=== PATIENT | male | born 1955 | race Caucasian/White ===

== ENCOUNTER 2024-08-25 06:43 | Day surgery (SDC) | payer MEDICARE, SELFPAY ==
--- OUTSIDE RECORDS SUMMARY | 2024-08-05 12:20 | XMS_ITS | Continuity of Care Document ---
Author Organization [facility] Address [address] [place] [address]- Care Team Providers Care M[employer] Liqu[employer] Sales Representative Name Role Phone Jeremy REGISTRATION CLERK, Mina Middleton Primary Care Physician ( [phone] Encounter [facility] Date(s): 06/15/24 - 07/15/24 [facility] [address] [place] [address]- Encounter Type: Triage Allergies, Adverse Reactions, Alerts No Known Allergies Immunizations Given and Recorded Vaccine Date Status Refusal Reason [id number] bivalent booster vax 04/24/22 Recorded influenza virus vaccine, inactivated 04/24/22 Lalo rded influenza virus vaccine, inactivated 04/15/21 Lalo rded SARS-CoV-2 (COVID-19) mRNA-1273 vaccine 04/15/21 R ecorded SARS-CoV-2 (COVID-19) mRNA-1273 vaccine 09/15/20 R ecorded SARS-CoV-2 (COVID-19) mRNA-1273 vaccine 08/16/20 R ecorded Influenza Virus Vaccine (oldterm) 1 03/30/20 Recor ded tetanus/diphtheria/pertussis, acel(Tdap) 06/13/16 Given Tetanus Toxoid 03/18/07 Recorded 1Result Comment: duarte velasquez Medications atorvastatin 80 mg oral tablet 1 tablet = 80 mg, By Mouth, Daily, for 90 days, # 90 tablet, 1 Refills, Hard Stop 11/11/24 1:59:00 PM EDT, 05/15/24 1:59:00 PM EST, Tablet, [facility], Partial fill upon patient request if the prescription is for a schedule II opioid drug., 173, cm, 09/23/23 9:52:00 EDT, Height, 80.4, kg, 11/15/21 17:29:00 EDT, Dry Weight Start Date: 05/15/24 Stop Date: 11/11/24 Status: Ordered Quantity: 90.0 Unit: tablet Repeat number: 2 cholecalciferol 2000 intl units oral tablet TAKE 1 TABLET DAILY, 09/28/13 4:20:00 PM EDT Start Date: 09/28/13 Status: Ordered Repeat number: 1 clopidogrel 75 mg oral tablet 75 mg, 1, tablet, By Mouth, Daily, # 90 tablet, Refills 3, Tot. Refills 3, Maintenance, 04/09/24 2:16:00 PM EDT, Route to Pharmacy Electronically, [facility], to replace Brilinta after current Rx runs out, 173, cm, 02/11/24 9:18:00 EDT, Height Start Date: 04/09/24 Status: Ordered Quantity: 90.0 Unit: tablet Repeat number: 4 cyanocobalamin 1000 mcg oral tablet 1,000 mcg, 1, tablet, By Mouth, Daily, # 90 tablet, Refills 1, Tot. Refills 1, Maintenance, 01/25/2312:33:00 PM EDT, Route to Pharmacy Electronically, [facility], Partial fill uponpatient request if the prescription is for a schedule II opioid drug., 173, cm, 10/11/22 9:41:00 EDT, Height, 80.4, kg, 11/15/21 17:29:00 EDT, Dry Weight Start Date: 01/24/23 Stop Date: 03/25/23 Status: Ordered Quantity: 90.0 Unit: tablet Repeat number: 2 Indication: Deficiency of other specified B group vitamins losartan 25 mg oral tablet 25 mg, 1, tablet, By Mouth, Daily at bedtime, # 90 tablet, Refills 1, Tot. Refills 1, Maintenance, 03/25/24 8:42:00 AM EDT, Route to Pharmacy Electronically, [facility], Partial fill upon patient request if the prescription is for a schedule II opioid drug., 173, cm, 02/11/24 9:18:00 EDT, Height Start Date: 03/25/24 Status: Ordered Quantity: 90.0 Unit: tablet Repeat number: 2 metFORMIN 1000 mg oral tablet 1 tablet, By Mouth, 2 times a day, # 180 tablet, 1 Refills, Maintenance, 02/13/24 10:18:00 AM EDT, [facility], 173, cm, 02/11/24 9:18:00 EDT, Height Start Date: 02/13/24 Status: Ordered Quantity: 180.0 Unit: tablet Repeat number: 2 metoprolol 25 mg oral tablet 12.5 mg, 0.5, tablet, By Mouth, 2 times a day, OV 05-18-24, # 90 tablet, Refills 1, Tot. Refills 1, Maintenance, 04/13/24 2:12:00 PM EDT, Route to Pharmacy Electronically, [facility], Partial fill upon patient request if the prescription is for a schedule II opioid drug., 173, cm,02/11/24 9:18:00 EDT, Height Start Date: 04/13/24 Status: Ordered Quantity: 90.0 Unit: tablet Repeat number: 2 Nitrostat 0.4 mg sublingual tablet 1 tablet = 0.4 mg, Sublingual, Every 5 minutes, PRN for chest pain, # 25 tablet, 3 Refills, Maintenance, 01/28/24 11:28:00 AM EDT, Tablet, [id number], Partial fill upon patient request if the prescription is for a schedule II opioid drug., 173, cm, 01/28/24 10:55:00 EDT, Height Start Date: 01/28/24 Status: Ordered Quantity: 25.0 Unit: tablet Repeat number: 4 OneTouch Verio Glucose Meter See Instructions, # 1 units, Refills 0, Tot. Refills 0, Maintenance, Test blood sugar twice daily E11.9, 07/11/16 8:40:00 AM EST, Compound Start Date: 07/11/16 Status: Ordered Quantity: 1.0 Unit: Units Repeat number: 1 OneTouch Verio Lancets See Instructions, # 100 units, Refills 11, Tot. Refills 11, Maintenance, Test blood sugar twice daily E11.9, 07/11/16 8:40:00 AM EST, Compound Start Date: 07/11/16 Status: Ordered Quantity: 100.0 Unit: Units Repeat number: 12 OneTouch Verio Test Strips See Instructions, # 200 each, Refills 5, Tot. Refills 5, Maintenance, Test blood sugar twice daily E11.9, 03/25/24 11:03:00 AM EDT, Compound, 173, cm, 02/11/24 9:18:00 EDT, Height Start Date: 03/25/24 Status: Ordered Quantity: 200.0 Unit: each Repeat number: 6 Problem List Condition Confirmation Course Effective Dates Status H ealth Status Informant COVID-19 1 Confirmed 11/19/21 Active Diabetes mellitus, controlled Confirmed Active Hyperlipidemia Confirmed Active Hypertension Confirmed Active Ischemic heart disease Confirmed Active Obstructive sleep apnea Confirmed Active Encounter for preventive health examination Confirmed Active 1Problem added by Discern Expert Social History Social History Type Response Smoking Status Former smoker entered on: 06/13/16 Sex Sex Representation Male (finding) Patient Care team information Care Team Personnel Name: Mina Luna NP Position: [facility] PC[facility] Associate Professional Member Role: PCP Address: [address] [place] [address] [address] Telecom: Care Team Related Persons Name: ADAMS ISABEL Insurance Providers Guarantor name: EMELINA ISABEL Health Plan Information #: 1 Payer: MEDICARE PART B OUTPT Member Number: NA Policy Number: NA Group Number: NA Health Plan Information #: 2 Payer: [employer] SUP Member Number: NA Policy Number: NA Group Number: NA
--- OUTSIDE RECORDS SUMMARY | 2024-08-05 12:20 | XMS_ITS | Patient Health Record ---
Author Organization [facility] Address [address] [place] [address] Care Team Providers Care Accounting Machine Operator Name Role Phone RABIA QUIROGA CNP Primary Care Provider U Lobito Stallings Jr Unavailable Lobito العلي Unavailable Unavailable ALLERGIES No Known Allergies REASON FOR REFERRAL No Information MEDICATIONS Medication SIG (Take, Route, Frequency, Duration) Notes Start Date End Date Status Vitamin B 12 500 MCG 1 tablet Orally Onc e a day for 30 day(s) 06/03/2024 Active Clopidogrel Bisulfate 75 MG Oral for 90 Active Metoprolol Tartrate 25 MG Oral for 90 Active Nitroglycerin 0.4 MG DISSOLVE ONE TABLET UNDER TONGUE NEEDED FOR CHEST PAIN - MAY REPEAT EVERY 5 MINUTES UP TO 3 DOSES - CALL 911 IF NOT RELIEVED Sublingual for 10 Active Vitamin D-3 25 MCG (1000 UT) 1 capsule O rally Once a day for 30 day(s) 06/03/2024 Active Losartan Potassium 25 MG Oral for 90 Active metFORMIN HCl 1000 MG Oral for 90 Active Atorvastatin Calcium 80 MG Oral for 90 Active MiraLax (colon prep) 17 GM/SCOOP mixed with Gatorade or Crystal Light Orally begin at 5:00 p.m. the day before the procedure for 1 day 06/03/2024 Active IMMUNIZATIONS Vaccine Route Administration Date Status Comme nts Influenza Unknown 05/20/2024 Administered SOCIAL HISTORY Tobacco Use: Social History Observation Description Date Details (start date - stop date) Former Smoker NA - NA Sex Assigned At : Social History Observation Description Sex Assigned At Unknown Tobacco Use/Smoking Question Answer Notes Patient is a former smoker Alcohol Screen Question Answer Notes Did you have a drink contain ing alcohol in the past year? Yes How often did you have a dri nk containing alcohol in the past year? 2 to 3 times a week (3 points) How many drinks did you have on a typical day when you were drinking in the past year? 3 or 4 drinks (1 point) How often did you have 6 or more drinks on one occasion in the past year? Never (0 point) Points 4 Interpretation Positive PROBLEMS Problem Type ICD Code Onset Dates Problem Status W/U Status Risk SNOMED Code Notes Problem Colon cancer screening (Z12.11) Active confirmed 619724562 Problem Encounter for current custodial use of antiplatelet drug (Z79.02) Active confirmed 154491282630953 Problem jail (current) use of oral hypoglycemic drugs (Z79.84) Active confirmed [id number] VITAL SIGNS Temperature 97.5 degrees Fahrenheit 06/03/2024 Blood pressure diastolic 00 mm Hg 06/03/2024 Height 5 ft 8 in in 06/03/2024 Blood pressure systolic 000 mm Hg 06/03/2024 Weight 178 lb 8 oz lbs 06/03/2024 BMI 27.14 kg/m2 06/03/2024 Encounters Encounter Location Date Provider Diagnosis [facility] [address] [facility] [address] [place] [id number] 06/03/2024 Lobito العلي Jr Colon cancer screening Z12.11 ; Encounter for current custodial use of antiplatelet drug Z79.02 and jail (current) use of oral hypoglycemic drugs Z79.84 ASSESSMENTS Encounter Date Diagnosis Assessment Notes Treatment Notes Treatment Clinical Notes 06/03/2024 Colon cancer screening (ICD-10 - Z12.11) Colonoscopy material was printed,Colonoscop y material was printed 06/03/2024 Encounter for current custodial use of antiplatelet drug (ICD-10 - Z79.02) 06/03/2024 jail (current) use of oral hypoglycemic drugs (ICD-10 - Z79.84) PLAN OF TREATMENT Future Test Test Name Order Date COLONOSCOPY 06/03/2024 Next Appt Details Provider Name:Lobito hussein Jr, 08/25/2024 08:50:00 AM, [address] [facility] , [place], [place], [id number], Insurance Providers Payer Name Payer Address Payer Phone Subscriber Number Group Number Insured Name Patient Relationship to Insured Coverage Start Date Coverage End Date MEDICARE OF [place] [address] [place] [id number] [phone] [id number] EMELINA ISABEL Self - patient is the insured [facility] SUPPLEMENTAL PLAN [address] [place] [address] [phone] [id number] EMELINA ISABEL Self - patient is the insured MEDICAL (GENERAL) HISTORY Medical History History ICD Code Hypertension Diabetes mellitus type 2 Hyperlipidemia Colonoscopy 12/03, tubular ad enoma, five-year followup for family history and personal history Coronary artery disease with history of ID and stent placement Malignant melanoma resection Echocardiogram 03/09, EF 50-5 5%, mild to moderate MR, aortic root 4.6, ascending aorta 2.5, normal RV function Surgical History Surgery Date(Month/Year) Melanoma resection from back 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
--- OUTSIDE RECORDS SUMMARY | 2024-08-05 12:20 | XMS_ITS ---
Author Organization [facility] Address [address] [place] [id number] Care Team Providers Care Food Cro[employer] Farm Hand Name Role Phone RABIA QUIROGA CNP Primary Care Provider U Lobito Stallings Jr Unavailable [phone] Lobito العلي Unavailable Unavailable ALLERGIES No Known Allergies REASON FOR VISIT Patient presents today for a colon recall MEDICATIONS Medication SIG (Take, Route, Frequency, Duration) [...] the procedure for 1 day 06/03/2024 Active Clopidogrel Bisulfate 75 MG Oral [...] a day for 30 day(s) 06/03/2024 Active SOCIAL HISTORY Tobacco Use: Social History Observation [...] Problem Colon cancer screening (Z12.11) Active confirmed [id number] Problem Encounter for current nursing home use of antiplatelet drug (Z79.02) Active confirmed [id number] Problem [facility] (current) use of oral hypoglycemic drugs (Z79.84) Active confirmed [id number] VITAL SIGNS BMI 27.14 kg/m2 06/03/2024 Blood pressure systolic 000 mm Hg 06/03/20 24 Blood pressure diastolic 00 mm Hg 024 Height 5 ft 8 in in 06/03/2024 Temperature 97.5 degrees Fahrenheit 06/03/20 24 Weight 178 lb 8 oz lbs 06/03/2024 Encounters Encounter Location Date Provider Diagnosis [facility] [address] [place] [address] 06/03/2024 Lobito العلي Jr Colon cancer screening Z12.11 ; Encounter for current supervisor intermediates use of antiplatelet drug Z79.02 and [facility] (current) use of oral hypoglycemic drugs Z79.84 ASSESSMENTS Encounter Date Diagnosis Assessment Notes Treatment Notes Treatment Clinical Notes 06/03/2024 Colon cancer screening (ICD-10 - Z12.11) Colonoscopy material was printed,Colonoscop y material was printed 06/03/2024 Encounter for current supervisor intermediates use of antiplatelet drug (ICD-10 - Z79.02) 06/03/2024 [facility] (current) use of oral hypoglycemic drugs (ICD-10 - Z79.84) PLAN OF TREATMENT Medication Medication Name Sig Start Date Stop Date Notes MiraLax (colon prep) 17 GM/SCOOP mixed with Gatorade or Crystal Light Orally begin at 5:00 p.m. the day before the procedure for 1 day 06/03/2024 Treatment Notes Assessment Notes Colon cancer screening Colonoscopy mater ial was printed,Colonoscopy material was printed Future Test Test Name Order Date COLONOSCOPY 06/03/2024 Next Appt Details Follow Up: 1 Year, Reason: Provider Name:Lobito Cerna hussein Jr, 08/25/2024 08:50:00 AM, [address] [place] [address] , [place], [place], [phone], Progress Notes * Examination Category Sub-Category Detail Notes General Examination GENERAL APPEARANCE: in no ac fernanda distress HEAD: normocephalic EYES: sclera non-icteric NECK/THYROID: no lymphadenopathy HEART: S1, S2 normal, no mu rmurs CHEST: normal shape and exp ansion LUNGS: clear to auscultatio n bilaterally ABDOMEN: soft, nontender, non distended, bowel sounds present, no organomegaly SKIN: anicteric EXTREMITIES: no clubbing, cyanosi s, or edema PSYCH: cognitive function i ntact ORAL CAVITY: mucosa moist
[2024-08-21 13:42] VITALS: BMI 27.1
--- NOTE | 2024-08-24 12:51 | P.CONAN_ITS ---
Documented by User: Heidi Rausch NP 08/24/24 12:55 HPI - Anesthesia Eval Consult details Narrative: 69yo M for Colonoscopy Follows [facility] cardiology for hx STEMI 2021 with AIDEE in RCA PMFSH Past Medical History Medical History Myocardial infarction Skin cancer LANIE (obstructive sleep apnea) Ischemic heart disease Hyperlipidemia HTN (hypertension) Diabetes Surgical History Surgical History Hx of hand surgery Hx of heart artery stent H/O colonoscopy Social History Social History Household Members: Spouse Patient Tobacco Use Status: Former Tobacco user Tobacco use type: Cigarette Use of substances other than those prescribed or required for medical reasons: No Are you DNR?: No Advance Directives: No Advance Directives Information Provided: Yes Meds Allergies Allergy/AdvReac Type Severity Reaction Status Date / Time No Known Allergies Allergy Verified 08/21/24 13:41 Home Medications ?Medication ?Instructions ?Recorded ?Confirmed ?Last Taken ?Type atorvastatin 80 mg tablet 80 mg PO DAILY 08/21/24 08/25/24 Unknown History clopidogrel 75 mg tablet 75 mg PO DAILY 08/21/24 08/25/24 08/18/24 History losartan 25 mg tablet 25 mg PO BEDTIME 08/21/24 08/25/24 Unknown History metformin 1,000 mg tablet 1,000 mg PO BID 08/21/24 08/25/24 Unknown History metoprolol tartrate 25 mg tablet 12.5 mg PO BID 08/21/24 08/25/24 08/25/24 History nitroglycerin 0.4 mg sublingual 0.4 mg sublingual NEEDED angina 08/21/24 08/25/24 Unknown History tablet Exam Height,Weight and Vital Signs: Height 5 ft 8 in Weight 80.739 kg Pertinent Lab Results Pertinent Lab Results: CMP 05/2024 from [facility] [place] Narrative Narrative: Stress Test NM Myocard Perf SPECT Multi ? 07:30:00 Summary Areas of myocardial infarct in the distribution of the RCA. Areas of potential ischemia in the distribution of the LCX and distal LAD(apex) Signatures _ _------ ? Signed By: Jayne SOLIS, Sandeep Ivan EchoEchocardiogram - Complete ? 12:10:01 Summary The left ventricular ejection fraction is 50-55 % with hypokinesis of the inferior wall. Normal right ventricular size and function. The left atrium is mildly to moderately dilated. There is mild to moderate mitral regurgitation. The aortic root is moderately dilated at 4.6 cm (leading edge-leading edge, indexed for sex and BSA). Comparison Comparison is made to the study of August 20, 2022. The EF has improved. The severity of mitral regurgitation has increased. Assessment and Plan Assessment Anesthesia Assessment: Chart Reviewed Documented by User: Kathy Kwan MD 08/25/24 08:07 [facility] Past Medical History Medical History Myocardial infarction Skin cancer LANIE (obstructive sleep apnea) Ischemic heart disease Hyperlipidemia HTN (hypertension) Diabetes Surgical History Surgical History Hx of hand surgery Hx of heart artery stent H/O colonoscopy History of Problems with Anesthesia: No Social History Social History Household Members: Spouse Patient Tobacco Use Status: Former Tobacco user Tobacco use type: Cigarette Use of substances other than those prescribed or required for medical reasons: No Are you DNR?: No Advance Directives: No Advance Directives Information Provided: Yes Meds Allergies Allergy/AdvReac Type Severity Reaction Status Date / Time No Known Allergies Allergy Verified 08/21/24 13:41 Home Medications ?Medication ?Instructions ?Recorded ?Confirmed ?Last Taken ?Type atorvastatin 80 mg tablet 80 mg PO DAILY 08/21/24 08/25/24 Unknown History clopidogrel 75 mg tablet 75 mg PO DAILY 08/21/24 08/25/24 08/18/24 History losartan 25 mg tablet 25 mg PO BEDTIME 08/21/24 08/25/24 Unknown History metformin 1,000 mg tablet 1,000 mg PO BID 08/21/24 08/25/24 Unknown History metoprolol tartrate 25 mg tablet 12.5 mg PO BID 08/21/24 08/25/24 08/25/24 History nitroglycerin 0.4 mg sublingual 0.4 mg sublingual NEEDED angina 08/21/24 08/25/24 Unknown History tablet Exam Narrative Narrative: Stress Test NM Myocard Perf SPECT Multi ? 07:30:00 Summary Areas of myocardial infarct in the distribution of the RCA. Areas of potential ischemia in the distribution of the LCX and distal LAD(apex) Signatures _ _ ? Signed By: Jayne SOLIS, Sandeep Ivan EchoEchocardiogram - Complete ? 12:10:01 Summary The left ventricular ejection fraction is 50-55 % with hypokinesis of the inferior wall. Normal right ventricular size and function. The left atrium is mildly to moderately dilated. There is mild to moderate mitral regurgitation. The aortic root is moderately dilated at 4.6 cm (leading edge-leading edge, indexed for sex and BSA). Comparison Comparison is made to the study of August 20, 2022. The EF has improved. The severity of mitral regurgitation has increased. Airway Mallampati Class: III TM Dist: >3cm Neck ROM: Full Partial: Upper Loose/Missing/Broken Teeth: Yes and Upper Heart: RRR Lungs: CTA Assessment and Plan Assessment Anesthesia Assessment: Anesthesia Plan Discussed Final Anesthetic Review History of Problems with Anesthesia: No NPO: Yes ASA Class: III Final Preanesthetic Review: Meds/Allgs Chart Reviewed, Consent Obtained/Reviewed and Anes Risks/Benef Reviewed Patient Risk: Intermediate Procedure Risk: Low Anesthetic Plan Anesthetic Plan: MAC: Disposition: Standard PACU
[2024-08-25 07:19] VITALS: BMI 26.8
[2024-08-25 07:21] VITALS: BP 124/59; PULSE 51; RESP 14; TEMP 36.6; O2SAT 99
--- NOTE | 2024-08-25 07:32 | MHC.SHP ---
Pre-Procedural Eval Section A - 24 Hr Update-Section A only Date of Service: 08/25/24 Section B - Complete if H&P > 30 days Chief Complaint: Encounter for screening for malignant neoplasm of Details of Present Illness: see H&P no changes Relevant Family History (Specify if Yes): Yes Relevant Social History: None Present Medications: see Short Stay Collaborative assessment Medical History: No relevant PMH Allergies: Allergies Allergy/AdvReac Type Severity Reaction Status Date / Time No Known Allergies Allergy Verified 08/21/24 13:41 Review of Systems Sugical H&P ROS: Negative: Constitution, Cardiovascular, Respiratory, Neurological, Psychiatric, Hem-Onc, Allergic/Immunologic, Gastrointestinal, Genitourinary, Musculoskeletal, Integumentary, Endocrine and Eyes/Ears/Nose/Throat Exam Surgical H&P Exam: Normal: HEENT, Normal: Heart, Normal: Lungs, Normal: Extremities, Normal: Abdomen, Normal: Skin and Normal: Neurological Plan Diagnosis/Plan: Unchanged I have reviewed the history and physical and performed a pertinent physical examination on my patient. No changes have occurred unless specified. Time Spent With Patient Time: Total time managing care of this patient today ____ minutes.
[2024-08-25] MEDS: Lactated Ringers 1,000 ML 100 ML IVCONT (07:53)
[2024-08-25 08:02] LABS: Glucose, Whole Blood 139 mg/dL (60-115)
[2024-08-25 08:35] VITALS: BP 96/45; PULSE 51; RESP 18; TEMP 36.3; O2SAT 98
[2024-08-25 08:50] VITALS: BP 107/52; PULSE 50; RESP 16; O2SAT 98
[2024-08-25 09:04] VITALS: BP 119/58; PULSE 50; RESP 16; TEMP 36.6; O2SAT 98
--- NOTE | 2024-08-25 09:34 | OP_ITS ---
DATE OF SERVICE: 08/25/2024 SURGEON: Lobito العلي MD INDICATIONS: Colon cancer screening and family history of colon cancer. PREOPERATIVE DIAGNOSIS: POSTOPERATIVE DIAGNOSIS: PROCEDURE PERFORMED: Colonoscopy to the terminal ileum with biopsy. ESTIMATED BLOOD LOSS: COMPLICATIONS: ANESTHESIA: Monitored anesthesia care. ASSISTANTS: SPECIMENS: DESCRIPTION OF PROCEDURE: A history and physical performed. The risks and benefits of the procedure were explained to the patient and informed consent was obtained. The patient was placed in the left lateral decubitus position. A digital rectal exam was performed and was found to be normal. The Olympus pediatric videocolonoscope was introduced into the rectum and advanced to the cecum. The cecum was identified by transillumination, palpation, and identification of ileocecal valve. Examination was performed. The scope was removed. He tolerated the procedure well. He returned to recovery area in stable condition. FINDINGS: The terminal ileum was examined and appeared normal. Abdominal wall pressure was used to assist in advancement of the scope due to looping in the sigmoid. Two polyps were identified and both measured less than 5 mm and were removed with biopsy forceps. These were located at 70 cm and 50 cm. There were few diverticula seen, scattered throughout the colon. No other polyps were identified. Retroflexed examination showed moderate-sized internal hemorrhoids. IMPRESSION: Colon polyps. RECOMMENDATION: Follow up the biopsy results. MD MAGO Gaemz/HUSSEIN / [id number]
== END 2024-08-25 09:27 | disposition home or self-care (01) ==
PROVIDERS: PCP Nurse Practitioner Family; Visit Provider Internal Medicine Gastroenterology
PROC: 0DJD8ZZ Inspection of Lower Intestinal Tract, Via Natural or Artificial Opening Endoscopic (ICD-10-PCS; CPT 45378; principal; 2024-08-25 08:10)
DX: Z12.11 Encounter for screening for malignant neoplasm of colon (principal); Z86.0101 Personal history of adenomatous and serrated colon polyps; Z80.0 Family history of malignant neoplasm of digestive organs; D12.4 Benign neoplasm of descending colon; K63.5 Polyp of colon; K57.30 Diverticulosis of large intestine without perforation or abscess without bleeding; K64.8 Other hemorrhoids; G47.33 Obstructive sleep apnea (adult) (pediatric); I10 Essential (primary) hypertension; I25.10 Atherosclerotic heart disease of native coronary artery without angina pectoris; I25.2 Old myocardial infarction; Z95.5 Presence of coronary angioplasty implant and graft; E78.5 Hyperlipidemia, unspecified; E11.9 Type 2 diabetes mellitus without complications; Z85.820 Personal history of malignant melanoma of skin; Z79.02 Long term (current) use of antithrombotics/antiplatelets; Z79.84 Long term (current) use of oral hypoglycemic drugs; Z79.899 Other long term (current) drug therapy; Z87.891 Personal history of nicotine dependence
CPT/HCPCS: 45380; 82947; 88305; J2003; J2704